=== PATIENT | female | born 1995 | race American Indian/Alaskan Native ===

== ENCOUNTER 2021-01-22 12:10 | Emergency (ER) | payer SELFPAY ==
[2021-01-22 13:03] VITALS: BP 109/67
--- NOTE | 2021-01-22 14:16 | XRay Report ---
CHEST 2 VIEWS INDICATION / CLINICAL INFORMATION: chest pain. COMPARISON: None available. FINDINGS: SUPPORT DEVICES: None. HEART / MEDIASTINUM: No significant abnormality. LUNGS / PLEURA: No significant pulmonary or pleural abnormality. No pneumothorax. ADDITIONAL FINDINGS: No significant additional findings. IMPRESSION: 1. No acute findings. Signer Name: Corey Monique MD Signed: 01/22/2021 2:12 PM Workstation Name: [id number]
--- NOTE | 2021-01-22 16:37 | Emergency Department Report ---
ED General Adult HPI - General Chief complaint: Chest Pain Stated complaint: PAIN WHEN BREATHING OR MOVE CHEST Time Seen by Provider: 01/22/21 16:31 Source: patient Mode of arrival: Ambulatory Limitations: No Limitations - History of Present Illness Initial comments: 25-year-old female patient presents to the emergency department with complaints of right sided chest pain/right-sided back pain starting 1 week ago. No preceding fall, trauma, or injury. Patient describes the pain as "sharp," worse with movement. She has not taken any medications for her symptoms. No history of similar symptoms. No venous thromboembolism risk factors identified on history. Denies fever, chills, cough, shortness of breath, nausea, vomiting, diaphoresis, syncope, lower extremity pain/swelling. Denies all other complaints at this time. Severity scale (0 -10): 8 - Related Data Allergies Allergy/AdvReac Type Severity Reaction Status Date / Time No Known Allergies Allergy Unverified 01/22/21 12:59 ED Review of Systems ROS: Stated complaint: PAIN WHEN BREATHING OR MOVE CHEST Other details as noted in HPI Other: GENERAL: Negative for fever, chills, weight change, anorexia, fatigue. ENT: Negative for ear pain, difficulty hearing, sore throat, nasal congestion, epistaxis. CARDIOVASCULAR: Positive for chest pain. PULMONARY: Negative for cough, dyspnea, wheezing, orthopnea, cyanosis. GASTROINTESTINAL: Negative for abdominal pain, nausea, vomiting, diarrhea, constipation. MUSCULOSKELETAL: Positive for back pain. NEUROLOGICAL: Negative for headache, seizure, syncope, paresthesias, weakness. INTEGUMENTARY: Negative for erythema, rash, diaphoresis, laceration, ecchymosis. HEMATOLOGICAL: Negative for hemoptysis, hematemesis, hematochezia, hematuria. PSYCHIATRIC: Negative for hallucinations, suicidal ideation, homicidal ideation, anxiety, depression. ED Past Medical Hx - Past Medical History Previous Medical History?: No - Surgical History Past Surgical History?: No ED Physical Exam - General Limitations: No Limitations - Other Other exam information: General: Awake and alert. No acute distress. Head: Atraumatic, normocephalic. Eyes: EOMI. Pupils are equal and round. Normal sclera and conjunctiva. ENT: Oral mucosa is moist. Normal pharyngeal exam. Neck: Supple. No lymphadenopathy. Pulmonary: No respiratory distress. Clear to auscultation bilaterally. No reproducible chest wall tenderness. Cardiac: Regular rate and rhythm. Pulses are palpable and equal bilaterally. No lower extremity cyanosis or edema. Skin: Warm and dry. No rashes. Abdomen: Soft, non-tender, non-protuberant. No guarding, rigidity, or rebound. Bowel sounds are normal. No organomegaly or masses noted. Back: Normal alignment. No CVA tenderness. No reproducible tenderness. Extremities: Symmetrical. Full range of motion intact. Neurological: Alert and oriented, appropriately interactive, no focal deficits. Psych: Cooperative. Appropriate mood and affect. Speech is evenly metered. Thoughts are logically construed. ED Course Vital Signs 01/22/21 13:00 Temperature 98.6 F Pulse Rate 73 Respiratory 18 Rate Blood Pressure 109/67 [Right] O2 Sat by Pulse 100 Oximetry ED Medical Decision Making - EKG Data 01/22/21 16:33 EKG shows normal sinus rhythm with a ventricular rate of 63 bpm. Normal axis. Normal IA interval. Normal QT interval. Good R wave progression. No ST segment changes. Over read by attending emergency physician, who agrees with this interpretation. - Medical Decision Making Differential diagnosis including but not limited to: pericarditis, pericardial effusion/cardiac tamponade, pneumonia, pneumothorax, pulmonary bleeding, costochondritis Patient presents to the emergency department with signs and/or symptoms that arise low risk clinical suspicion for pulmonary embolism. The patient has none of the following clinical criteria: age >50, heart rate >100, room air O2 saturation <94%, history of DVT/PE, recent trauma/surgery, hemoptysis, exogenous estrogen, or signs/symptoms of DVT. As a result, this patient has very low probability of pulmonary embolism and further testing is not indicated. On reevaluation, patient is stable. No hypoxia, no respiratory distress. EKG without acute injury pattern. Chest x-ray is negative. Exceedingly low clinical suspicion for acute coronary syndrome given patient's age and absence of risk factors. Pain is sharp and localized to the right side of her chest. History and exam findings suggestive of musculoskeletal chest wall pain. No clinical indication for further diagnostic work-up on an emergent basis at this time. Patient will be discharged home and referred to primary care provider for close outpatient follow-up. Patient expressed understanding and is agreeable to plan of care. Strict return precautions provided. Repeat exam is unremarkable and benign. History, exam, diagnostic testing, and current condition do not suggest worrisome pathology to warrant further testing, continued ED treatment, admission, or surgical evaluation at this point. Given the low probability of a significant medical illness, it would be more likely to result in harm than benefit to perform further testing at this stage. Discussed findings, presumptive diagnosis, need for follow-up and specific signs/symptoms that should prompt immediate return to the emergency department. Instructions were explained in detail to the patient in addition to giving written discharge information. Patient expressed understanding and was given the opportunity to ask questions, all of which were satisfactorily answered prior to discharge home. Critical care attestation.: If time is entered above; I have spent that time in minutes in the direct care of this critically ill patient, excluding procedure time. ED Disposition Clinical Impression: Nonspecific chest pain Disposition: TO HOME OR SELFCARE Is pt being admited?: No Does the pt Need Aspirin: No Condition: Stable Instructions: Costochondritis Additional Instructions: Take Tylenol every 4 hours and Motrin every 8 hours as needed for pain. Apply heat to affected area as needed for pain. Rest. Gradually advance physical activity slowly as tolerated. Follow-up with primary care provider this week. Call tomorrow to schedule an appointment. See referral information below. Return to the emergency department immediately for new or worsening symptoms. Referrals: FARHEEN HENDRIX MD [Staff Physician] - 3-5 Days [facility] [Provider Group] - 3-5 Days Time of Disposition: 16:40
--- NOTE | 2021-01-24 09:45 | Electrocardiograph Report ---
[facility] Test Date: 2021-01-22 Test Time: 13:09:43 Pat Name: BENSON SEPULVEDA Department: Room: Gender: F [employer]: TONO : 1995 Requested By: AUSTIN LANG Order Number: [id number] Reading MD: Obinna Nicole Measurements Intervals [place] Rate: 63 P: 47 IA: 150 QRS: 42 QRSD: 76 T: 40 QT: 399 QTc: 410 Interpretive Statements Sinus rhythm nonspecific st-t No previous ECG available for comparison Electronically Signed On 01-24-2021 9:44:50 EDT by Obinna Nicole
== END 2021-01-22 16:47 | disposition home or self-care (01) ==
LOC: ED 12:10
DX: R07.89 Other chest pain (principal)
CPT/HCPCS: 71046; 93005

== ENCOUNTER 2021-10-19 19:57 | Emergency (ER) | payer SELFPAY ==
[2021-10-19 20:04] VITALS: BP 145/92
== END 2021-10-19 22:19 | disposition left against medical advice (07) ==
LOC: ED 19:57
DX: R53.1 Weakness (principal); Z53.21 Procedure and treatment not carried out due to patient leaving prior to being seen by health care provider